=== PATIENT | female | born 1975 | race Caucasian/White ===

== ENCOUNTER 2021-01-20 10:14 | Outpatient (CLI) | payer BC ==
[2021-01-20 16:44] LABS: SARS-CoV-2 PCR by NAA Not Detected (NotDetected)
== END 2021-01-20 10:15 | disposition home or self-care (01) ==
LOC: CSHLAB 10:14
PROVIDERS: ATTEND Surgery
DX: Z20.822 Contact with and (suspected) exposure to COVID-19 (principal); K21.9 Gastro-esophageal reflux disease without esophagitis; Z12.11 Encounter for screening for malignant neoplasm of colon
CPT/HCPCS: 87635; U0003; U0005

== ENCOUNTER 2021-01-25 08:09 | Day surgery (SDC) | payer BC ==
[2021-01-24 15:19] VITALS: BMI 40.7
[2021-01-25] MEDS ORDERED: Lidocaine 1% MPF 2 ML VIAL ONE (08:35)
[2021-01-25] MEDS ORDERED: PROPOFOL 40 ML ONE (09:29)
[2021-01-25] MEDS ORDERED: Fentanyl 100 MCG/2 ML VIAL ONE (09:29)
[2021-01-25] MEDS ORDERED: Midazolam HCl 2 mg/2 ml Vial ONE (09:29)
[2021-01-25] MEDS ORDERED: Lidocaine 1% PF 5 ML VIAL ONE (09:29)
== END 2021-01-25 11:07 | disposition home or self-care (01) ==
LOC: CSHSDC 08:09
PROVIDERS: ATTEND Surgery
DX: K21.9 Gastro-esophageal reflux disease without esophagitis (principal); E66.01 Morbid (severe) obesity due to excess calories; Z98.84 Bariatric surgery status; Z79.899 Other long term (current) drug therapy
CPT/HCPCS: 88305; J2250; J2704; J3010

== ENCOUNTER 2023-05-18 12:02 | Outpatient (CLI) | payer BC | END 2023-05-18 12:03 | disposition home or self-care (01) | LOC: CSHMAMMO 12:02 | PROVIDERS: ATTEND Obstetrics & Gynecology | DX: Z12.31 Encounter for screening mammogram for malignant neoplasm of breast (principal) | CPT/HCPCS: 77063; 77067 ==